=== PATIENT | male | born 1950 | race Caucasian/White ===

== ENCOUNTER 2019-02-26 13:30 | Outpatient (RCR) | payer MEDICARE, OTHER | END 2019-02-27 | disposition home or self-care (01) | LOC: WSPT | DX: M54.42 Lumbago with sciatica, left side (principal); M62.830 Muscle spasm of back; R29.898 Other symptoms and signs involving the musculoskeletal system; R29.6 Repeated falls; Z91.81 History of falling; M47.816 Spondylosis without myelopathy or radiculopathy, lumbar region; M51.26 Other intervertebral disc displacement, lumbar region; M41.9 Scoliosis, unspecified; Z98.890 Other specified postprocedural states | CPT/HCPCS: G8981-GP; G8982-GP ==

== ENCOUNTER 2019-04-16 14:15 | Outpatient (RCR) | payer MEDICARE, OTHER | END 2019-06-03 | LOC: WSPT | DX: M48.061 Spinal stenosis, lumbar region without neurogenic claudication (principal); M62.81 Muscle weakness (generalized) ==

== ENCOUNTER 2024-07-25 12:45 | Day surgery (SDC) | payer MEDICARE ==
[2024-07-25] VITALS (7 sets, daily range): BP systolic 119–153; BP diastolic 54–83; PULSE 62–70; TEMP 98
[~2024-07-25] VITALS: Ht 188.4 cm; Wt 154.6 kg
[~2024-07-25 12:45] MED LIST: ACTOS30 MG; ACTOS30 MG PO; ASPIRIN 32325 MG/TAB PO; CENTRUM SILVER1 TAB; GLUCOPHAGE500 MG/TAB PO; HCTZ 25MG TAB25 MG PO; LIPITOR 40MG TA40 MG PO; LOTENSIN20 MG PO; SYNTHROID0.2 MG/TAB PO; TYLENOL 500MG500 MG PO; ULTRAM 50MG TAB50 MG PO; VICTOZA6 MG/ML SQ
[2024-07-25] MEDS ORDERED: TOUJEO300 U/ML SQ (13:32)
--- NOTE | 2024-07-25 14:43 | NUR ---
SEE MERGE FOR PROCEDURE DOCUMENTATION
[2024-07-25] MEDS ORDERED: Midazolam 2 MG/2 ML VIAL IV SCH (15:02)
[2024-07-25] MEDS ORDERED: fentaNYL 50 MCG/ML 2 ML VIAL IV SCH (15:03)
[2024-07-25] MEDS ORDERED: Iohexol 350 - 100 ML VIAL IV ONE (15:04)
--- NOTE | 2024-07-25 15:27 | NUR ---
PATIENT ALERT AND ORIENTED, VSS. PATIENT TRANSFERRED TO BED VIA STRETCHER AND TRANSPORTED TO [facility]. VITAL SIGNS TAKEN ON ARRIVAL, VSS. PLAN OF CARE REVIEWED WITH PT AND SPOUSE AT BEDSIDE. TRANSFER OF CARE TO [facility]. GROIN SITE DRESSING REMAINS CDI AND SOFT TO PALPATION. BED TO LOWEST POSITION, HOB TO 20 DEGREES, CALL LIGHT PLACED WITHIN REACH, X3 BEDRAILS IN PLACE.
--- NOTE | 2024-07-25 16:32 | NUR ---
PT TOLERATED RECOVERY PERIOD WELL. RIGHT GROIN DRESSING REMAINS CLEAN DRY AND INTACT. SITE REMAINS FREE FROM SIGNS OF BLEEDING AND HEMATOMA. VS REMAINED WITHIN NORMAL LIMITS. IV DISCONTINUED. PT VERBALIZED UNDERSTANDING OF DISCHARGE INSTRUCTIONS. PT ASSISTED TO MAIN LOBBY VIA WHEELCHAIR UPON DISCHARGE.
== END 2024-07-25 16:34 | disposition home or self-care (01) ==
LOC: COL.CAR 12:45
DX: Z45.89 Encounter for adjustment and management of other implanted devices (principal); Z86.718 Personal history of other venous thrombosis and embolism; Z79.82 Long term (current) use of aspirin
CPT/HCPCS: J1644; J2250; J3010; Q9967